=== PATIENT | female | born 1955 | race American Indian/Alaskan Native ===

== ENCOUNTER 2017-01-03 08:47 | Outpatient (CLI) | payer BC ==
--- NOTE | 2017-01-03 09:39 | Mammography Report ---
IMPLANT MAMMOGRAM: Bilateral breast imaging was done with standard and displacement technique. Parenchyma is symmetrically seen ventral to each implant. The implant contours are smooth. No suspicious findings or secondary signs of malignancy are seen. There are no significant changes compared to her prior exams dating back to 2014. CAD was utilized. CONCLUSION: Negative implant mammogram. RECOMMENDATION: Routine follow-up. BI-RADS CATEGORY: 1 = Negative ACR BI-RADS MAMMOGRAPHIC CODES: 0 = Needs additional imaging evaluation; 1 = Negative; 2 = Benign; 3 = Probably benign; 4 = Suspicious; 5 = Malignant; 6 = Known biopsy-proven malignancy COMMENT: 1. Dense breast tissue, i.e., adenosis, fibrocystic changes, etc., may obscure an underlying neoplasm. 2. Approximately 10% of cancers are not detected with mammography. 3. A negative mammography report should not delay biopsy if a clinically suspicious mass is present. COMMENT: Patient follow-up letters are generated in [employer].
== END 2017-01-03 08:48 | disposition home or self-care (01) ==
LOC: SPVWC 08:47
PROVIDERS: ATTEND Obstetrics & Gynecology
DX: Z12.31 Encounter for screening mammogram for malignant neoplasm of breast (principal)
CPT/HCPCS: 77067; G0202

== ENCOUNTER 2018-01-27 12:01 | Outpatient (CLI) | payer BC ==
--- NOTE | 2018-01-27 15:49 | Mammography Report ---
BILATERAL DIGITAL SCREENING MAMMOGRAM with CAD : 01/27/18 12:01:00 CLINICAL: Routine screening. COMPARISON:01/03/17 FINDINGS: The breasts are heterogeneously dense, which may obscure small masses. No new mass, architectural distortion or suspicious calcifications. IMPRESSION: No mammographic evidence of malignancy. BI-RADS CATEGORY: 2 -- Benign RECOMMENDATION: Routine mammographic screening in one year. COMMENT: Patient follow-up letters are generated by our [employer] application.
== END 2018-01-27 12:02 | disposition home or self-care (01) ==
LOC: SPVWC 12:01
PROVIDERS: ATTEND Obstetrics & Gynecology
DX: Z12.31 Encounter for screening mammogram for malignant neoplasm of breast (principal)
CPT/HCPCS: 77067

== ENCOUNTER 2018-03-19 05:51 | Day surgery (SDC) | payer BC ==
[2018-03-19] MEDS ORDERED: TETRACAINE 0.5% OD PRN (06:00)
[2018-03-19] MEDS: VIGAMOX OD SCH ×2 (06:35→06:41)
[2018-03-19] MEDS: MYDRIACYL OD SCH ×2 (06:35→06:41)
[2018-03-19] MEDS: AK-Dilate OD SCH ×2 (06:35→06:41)
[2018-03-19] MEDS ORDERED: NACL P/F VIAL (10 ML) 10 ML ONE (07:46)
[2018-03-19] MEDS ORDERED: VERSED ONE (07:46)
--- NOTE | 2018-03-19 07:49 | Anesthesia Day of Surgery ---
Anesthesia Day of Surgery - Day of Surgery Patient Examined: Yes Patient H&P Reviewed: Yes Patient is NPO: Yes
--- NOTE | 2018-03-19 07:49 | Anesthesia Consultation ---
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
[2018-03-19] MEDS ORDERED: SUBLIMAZE ONE (07:57)
[2018-03-19] MEDS ORDERED: PRED FORTE 1% ONE (08:07)
[2018-03-19] MEDS ORDERED: DIAMOX PO NR (08:30)
[2018-03-19] MEDS ORDERED: PRED FORTE 1% OD SCH (09:00)
[2018-03-19 09:50] VITALS: BP 115/74
--- NOTE | 2018-03-19 09:55 | Operative Report ---
Operative Report Operative Report: PATIENT'S NAME: DATE OF : DATE OF SURGERY: 03/19/2018 PREOPERATIVE DIAGNOSIS: Cataract right eye POSTOPERATIVE DIAGNOSIS: Same OPERATIVE PROCEDURE: Phacoemulsification with intraocular lens implantation, right eye SURGEON: Shyanne Luu M.D. ACADEMIC AFFAIRS COORDINATOR SURGEON: Harlan Lens: [id number] 12.0 D ANESTHESIA: Monitored anesthesia care in combination with topical and intracameral anesthesia because of the established specific risk of reflux, arrhythmias, or anxiety attacks associated with ocular manipulation, as well as the difficulty of the job developer to manage such potentially catastrophic events while simultaneously attempting to complete the surgical procedure and was deemed necessary for the patient's safety to have an Snow Groomer present during the procedure whenever possible. An Snow Groomer was utilized to regulate the intravenous sedation of the patient so the patient was cooperative yet not asleep in order for the patient to successfully maintain fixation of the eye on the operating light of the microscope. COMPLICATIONS: No surgical complications No blood loss. ALLERGIES: No known drug allergies PROGNOSIS: Excellent INDICATIONS FOR SURGERY: The patient is undergoing surgery in the hopes of eliminating or improving these visual difficulties. PROCEDURE: After arriving at the surgery center, the patient was given topical anesthetic and dilating drops, as noted in the record. The patient was then taken into the operating room and given more anesthetic drops. The eyelids , lashes, and lid margins were scrubbed with Betadine solution, and the patient was draped. The Nurse Snow Groomer administered IV sedation and monitored the patient during the procedure. The eye was then fixated with a 0.12, and a stab incision was made in the peripheral clear cornea into the anterior chamber. This was made on my left side. Viscoelastic was next used to fill the anterior chamber. The eye was once again fixated with the 0.12 forceps and a keratome was used make an incision in clear cornea peripherally on my right hand side temporally. The capsule forceps were used to open the central anterior capsule and then make a continuous round capsulotomy. Hydrodissection was carried out utilizing a cannula and balanced salt solution to delineate the cortical material from the capsule and the nucleus from the cortical material. The phaco tip was introduced into the eye and used to remove the anterior cortical material in the area of the capsulotomy. Then the phaco tip was buried into the nucleus, and a chopping instrument was introduced into the eye and used to provide countertraction in the nucleus between this instrument and the phaco tip fracturing the nucleus. This procedure was repeated multiple times, providing multiple small segments of the lens, and then the phaco tip was used to remove each of these segments. An I/A tip was then used to remove the remaining cortex. The anterior chamber was refilled with viscoelastic. An one-piece, acrylic intraocular lens was then placed into an inserting cartridge. The tip of the inserting cartridge was introduced into the keratome incision and into the anterior chamber. The implant was gently advanced through the cartridge and into the eye, where it unfolded, and both haptics were placed in the capsular bag, where it centered nicely and appeared to be well fixated. After placement of the intraocular lens, the I~and~A handpiece was placed back into the eye and used to remove the viscoelastic, including viscoelastic that was behind the optic of the intraocular lens. The anterior chamber was then filled with balanced salt solution, and hydration of the wound was used to cause swelling of the wound and more appropriate watertight closure. When the wound was found to be firm, the patient was asked to comment on how bright the light was. If there was no light perception at all or if the light was substantially dimmer than during the rest of the surgery, the amount of fluid in the eye was decompressed to lower the intraocular pressure until the patient could see the bright light again. This was done to avoid any damage or decreased blood flow to the optic nerve. MEDICATIONS APPLIED AT END OF SURGERY: One drop of Pred Forte and Vigamox The patient was given a shield to wear at night and was instructed not to rub or push on the eye. DISCHARGE SUMMARY: The patient was released in stable condition. The patient and those with the patient were given a written sheet of postoperative instructions and counseling on any abnormal laboratory studies. The patient is to see us tomorrow for follow-up in the office and is to call immediately for any difficulties. Shyanne Luu M.D. Date
--- NOTE | 2018-03-19 09:56 | Short Stay Summary ---
Short Stay Documentation Date of service: 03/19/18 - History H&P: obtained from office - Allergies and Medications Current Medications: Allergies No Known Allergies Allergy (Verified 03/17/18 12:02) Home Medications Medication Instructions Recorded Confirmed Last Taken Type Lisinopril [Zestril TAB] 40 mg PO DAILY 03/17/18 03/19/18 03/19/18 04:00 History Meloxicam 15 mg PO DAILY 03/17/18 03/19/18 03/18/18 09:00 History Pravastatin [Pravachol] 40 mg PO DAILY 03/17/18 03/19/18 03/18/18 17:30 History hydroCHLOROthiazide 50 mg PO DAILY 03/17/18 03/19/18 03/18/18 17:30 History [Hydrochlorothiazide] Active Medications Acetazolamide (Diamox) 500 mg PO ONCE NR Stop: 03/19/18 11:00 Last Admin: 03/19/18 08:37 Dose: 500 mg Moxifloxacin HCl (Vigamox) 1 drops OD Q5MIN MIHIR Stop: 03/21/18 06:01 Last Admin: 03/19/18 06:41 Dose: 1 drops Phenylephrine HCl (Ak-Dilate) 1 drops OD Q5MIN MIHIR Stop: 03/21/18 06:01 Last Admin: 03/19/18 06:41 Dose: 1 drops Prednisolone Acetate (Pred Forte 1%) 1 drops OD QID [facility] Last Admin: 03/19/18 08:36 Dose: 1 drops Tetracaine HCl (Tetracaine 0.5%) 1 drops OD Q5M PRN PRN Reason: PREOP Last Admin: 03/19/18 06:34 Dose: 1 drops Tropicamide (Mydriacyl) 1 drops OD Q5MIN MIHIR Stop: 03/21/18 06:01 Last Admin: 03/19/18 06:41 Dose: 1 drops - Brief post op/procedure progress note Date of procedure: 03/19/18 Pre-op diagnosis: nuclear sclerotic cataract and eye Post-op diagnosis: same Anesthesia: MAC, local Forensic Pathologist: SEBASTIAN ABBASI Estimated blood loss: none Pathology: none Condition: stable - Disposition Condition at discharge: Good Disposition: DC-01 TO HOME OR SELFCARE - Discharge Diagnoses (1) Cataract, nuclear sclerotic, right eye Status: Resolved Short Stay Discharge Plan Additional Instructions: FOLLOW SURGEON INSTRUCTION Follow up with: SHAINA GONZALEZ MD [Primary Care Provider] - 7 Days Forms: Outpatient Surgery DC Inst.
== END 2018-03-19 09:10 | disposition home or self-care (01) ==
LOC: OR 05:51
DX: H25.11 Age-related nuclear cataract, right eye (principal); E78.00 Pure hypercholesterolemia, unspecified; I10 Essential (primary) hypertension; M19.90 Unspecified osteoarthritis, unspecified site; Z98.51 Tubal ligation status; Z90.710 Acquired absence of both cervix and uterus; Z98.890 Other specified postprocedural states; Z80.59 Family history of malignant neoplasm of other urinary tract organ; Z98.41 Cataract extraction status, right eye; Z79.899 Other long term (current) drug therapy
CPT/HCPCS: 66984; J2250; J3010; V2632

== ENCOUNTER 2018-04-16 06:47 | Day surgery (SDC) | payer BC ==
[2018-04-16] MEDS ORDERED: VIGAMOX ONE (07:25)
[2018-04-16] MEDS ORDERED: MYDRIACYL ONE (07:25)
[2018-04-16] MEDS ORDERED: TETRACAINE 0.5% ONE (07:25)
[2018-04-16] MEDS ORDERED: AK-Dilate ONE (07:25)
[2018-04-16] MEDS ORDERED: TETRACAINE 0.5% OS PRN (07:28)
[2018-04-16] MEDS: VIGAMOX OS SCH ×3 (07:50→08:00)
[2018-04-16] MEDS: MYDRIACYL OS SCH ×3 (07:50→08:00)
[2018-04-16] MEDS: AK-Dilate OS SCH ×3 (07:50→08:00)
[2018-04-16] MEDS ORDERED: DIAMOX PO NR (08:16)
--- NOTE | 2018-04-16 08:21 | Anesthesia Day of Surgery ---
Anesthesia Day of Surgery - Day of Surgery Patient Examined: Yes Patient H&P Reviewed: Yes Patient is NPO: Yes
--- NOTE | 2018-04-16 08:21 | Anesthesia Consultation ---
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 Same procedure 1 month ago on right eye under MAC without issues.
[2018-04-16] MEDS ORDERED: VERSED ONE (09:36)
[2018-04-16] MEDS ORDERED: SUBLIMAZE ONE (09:52)
--- NOTE | 2018-04-16 09:58 | Short Stay Summary ---
Short Stay Documentation Date of service: 04/16/18 - History H&P: obtained from office - Allergies and Medications Current Medications: Allergies No Known Allergies Allergy (Verified 04/14/18 12:47) Home Medications Medication Instructions Recorded Confirmed Last Taken Type Lisinopril [Zestril TAB] 40 mg PO DAILY 03/17/18 04/14/18 03/19/18 04:00 History Meloxicam 15 mg PO DAILY 03/17/18 04/14/18 03/18/18 09:00 History Pravastatin [Pravachol] 40 mg PO DAILY 03/17/18 04/14/18 03/18/18 17:30 History hydroCHLOROthiazide 50 mg PO DAILY 03/17/18 04/14/18 03/18/18 17:30 History [Hydrochlorothiazide] Active Medications Acetazolamide (Diamox) 500 mg PO ONCE NR Stop: 04/16/18 22:00 Moxifloxacin HCl (Vigamox) 1 drops OS Q5MIN MIHIR Stop: 04/18/18 08:01 Last Admin: 04/16/18 08:00 Dose: 1 drops Phenylephrine HCl (Ak-Dilate) 1 drops OS Q5MIN MIHIR Stop: 04/18/18 07:31 Last Admin: 04/16/18 08:00 Dose: 1 drops Prednisolone Acetate (Pred Forte 1%) 1 drops OS QID MIHIR Stop: 04/16/18 22:00 Tetracaine HCl (Tetracaine 0.5%) 1 drops OS Q5M PRN PRN Reason: preop Last Admin: 04/16/18 07:50 Dose: 1 drops Tropicamide (Mydriacyl) 1 drops OS Q5MIN MIHIR Stop: 04/18/18 07:30 Last Admin: 04/16/18 08:00 Dose: 1 drops - Brief post op/procedure progress note Date of procedure: 04/16/18 Pre-op diagnosis: left cataract Post-op diagnosis: same Procedure: Phacoemulsification with intraocular lens insertion left eye Anesthesia: MAC, local Surgeon: SEBASTIAN ABBASI Estimated blood loss: none Pathology: none Condition: stable - Disposition Condition at discharge: Good Disposition: DC-01 TO HOME OR SELFCARE - Discharge Diagnoses (1) Nuclear sclerotic cataract of left eye Status: Resolved Short Stay Discharge Plan Follow up with: SHAINA GONZALEZ MD [Primary Care Provider] - 7 Days
--- NOTE | 2018-04-16 09:58 | Operative Report ---
Operative Report Operative Report: PATIENT'S NAME: DATE OF : DATE OF SURGERY: 04/17/2018 PREOPERATIVE DIAGNOSIS: Cataract left eye POSTOPERATIVE DIAGNOSIS: Same OPERATIVE PROCEDURE: Phacoemulsification with intraocular lens implantation, left eye SURGEON: Shyanne Luu M.D. DIRECTOR OF RESEARCH SURGEON: Harlan Lens: [id number] 13.0 D ANESTHESIA: Monitored anesthesia care in combination with topical and intracameral anesthesia because of the established specific risk of reflux, arrhythmias, or anxiety attacks associated with ocular manipulation, as well as the difficulty of the livestock nutritionist to manage such potentially catastrophic events while simultaneously attempting to complete the surgical procedure and was deemed necessary for the patient's safety to have an Intelligence Senior Sergeant present during the procedure whenever possible. An Intelligence Senior Sergeant was utilized to regulate the intravenous sedation of the patient so the patient was cooperative yet not asleep in order for the patient to successfully maintain fixation of the eye on the operating light of the microscope. COMPLICATIONS: No surgical complications No blood loss. ALLERGIES: No known drug allergies PROGNOSIS: Excellent INDICATIONS FOR SURGERY: The patient is undergoing surgery in the hopes of eliminating or improving these visual difficulties. PROCEDURE: After arriving at the surgery center, the patient was given topical anesthetic and dilating drops, as noted in the record. The patient was then taken into the operating room and given more anesthetic drops. The eyelids , lashes, and lid margins were scrubbed with Betadine solution, and the patient was draped. The Nurse Intelligence Senior Sergeant administered IV sedation and monitored the patient during the procedure. The eye was then fixated with a 0.12, and a stab incision was made in the peripheral clear cornea into the anterior chamber. This was made on my left side. Viscoelastic was next used to fill the anterior chamber. The eye was once again fixated with the 0.12 forceps and a keratome was used make an incision in clear cornea peripherally on my right hand side temporally. The capsule forceps were used to open the central anterior capsule and then make a continuous round capsulotomy. Hydrodissection was carried out utilizing a cannula and balanced salt solution to delineate the cortical material from the capsule and the nucleus from the cortical material. The phaco tip was introduced into the eye and used to remove the anterior cortical material in the area of the capsulotomy. Then the phaco tip was buried into the nucleus, and a chopping instrument was introduced into the eye and used to provide countertraction in the nucleus between this instrument and the phaco tip fracturing the nucleus. This procedure was repeated multiple times, providing multiple small segments of the lens, and then the phaco tip was used to remove each of these segments. An I/A tip was then used to remove the remaining cortex. The anterior chamber was refilled with viscoelastic. An one-piece, acrylic intraocular lens was then placed into an inserting cartridge. The tip of the inserting cartridge was introduced into the keratome incision and into the anterior chamber. The implant was gently advanced through the cartridge and into the eye, where it unfolded, and both haptics were placed in the capsular bag, where it centered nicely and appeared to be well fixated. After placement of the intraocular lens, the I~and~A handpiece was placed back into the eye and used to remove the viscoelastic, including viscoelastic that was behind the optic of the intraocular lens. The anterior chamber was then filled with balanced salt solution, and hydration of the wound was used to cause swelling of the wound and more appropriate watertight closure. When the wound was found to be firm, the patient was asked to comment on how bright the light was. If there was no light perception at all or if the light was substantially dimmer than during the rest of the surgery, the amount of fluid in the eye was decompressed to lower the intraocular pressure until the patient could see the bright light again. This was done to avoid any damage or decreased blood flow to the optic nerve. MEDICATIONS APPLIED AT END OF SURGERY: One drop of Pred Forte and Vigamox The patient was given a shield to wear at night and was instructed not to rub or push on the eye. DISCHARGE SUMMARY: The patient was released in stable condition. The patient and those with the patient were given a written sheet of postoperative instructions and counseling on any abnormal laboratory studies. The patient is to see us tomorrow for follow-up in the office and is to call immediately for any difficulties. Shyanne Luu M.D. Date
[2018-04-16] MEDS ORDERED: PRED FORTE 1% OS SCH (10:00)
--- NOTE | 2018-04-16 10:22 | Post Anesthesia Evaluation ---
- Post Anesthesia Evaluation Patient Participated: Yes Airway Patent: Yes Stable Respiratory Function: Yes Nausea/Vomiting: No Temp > 96.8F: Yes Pain Manageable: Yes Adequeate Hydration: Yes Anesthesia Complications: No
[2018-04-16 15:11] VITALS: BP 129/65
== END 2018-04-16 10:37 | disposition home or self-care (01) ==
LOC: OR 06:47
DX: H25.12 Age-related nuclear cataract, left eye (principal); H25.11 Age-related nuclear cataract, right eye; E78.00 Pure hypercholesterolemia, unspecified; I10 Essential (primary) hypertension; M19.90 Unspecified osteoarthritis, unspecified site; Z98.51 Tubal ligation status; Z90.710 Acquired absence of both cervix and uterus; Z98.890 Other specified postprocedural states; Z79.899 Other long term (current) drug therapy; Z98.41 Cataract extraction status, right eye; Z80.59 Family history of malignant neoplasm of other urinary tract organ
CPT/HCPCS: 66984; J2250; J3010; V2632

== ENCOUNTER 2019-01-28 10:09 | Outpatient (CLI) | payer BC ==
--- NOTE | 2019-01-28 15:12 | Mammography Report ---
BILATERAL DIGITAL SCREENING MAMMOGRAM WITH CAD INDICATION: Routine screening mammography. TECHNIQUE: Digital bilateral 2D mammography was obtained in the craniocaudal and mediolateral obliq ue projections. This examination was interpreted with the benefit of Computer-Aided Detection analysi s. COMPARISON: 01/03/2016 FINDINGS: Breast Density: The breasts are heterogeneously dense, which may obscure small masses. No mass, architectural distortion or suspicious calcifications. IMPRESSION:No mammographic evidence of malignancy. BI-RADS Category 2: Benign. No mammographic evidence of malignancy. Recommend routine screening ma mmography in one year. A "normal" or negative report should not discourage follow up or biopsy of a clinically significant f inding. A written summary of these findings will be mailed to the patient. The patient will be entered into a mammography reporting system which will generate a reminder letter for the patient's next appointmen t at the appropriate interval. The [employer] recommends yearly mammograms starting at age 40 and continuing as l pepe as a woman is in good health. Breast MRI is recommended for women with an approximate 20-25% or greater lifetime risk of breast cancer, including women with a strong family history of breast or ova ethan cancer or who have been treated for Hodgkin's disease. Signer Name: Emmett Ceballos MD Signed: 01/28/2019 3:08 PM Workstation Name: [id number]
== END 2019-01-28 10:10 | disposition home or self-care (01) ==
LOC: SPVWC 10:09
PROVIDERS: ATTEND Obstetrics & Gynecology
DX: Z12.31 Encounter for screening mammogram for malignant neoplasm of breast (principal); E78.00 Pure hypercholesterolemia, unspecified; I10 Essential (primary) hypertension; Z90.710 Acquired absence of both cervix and uterus
CPT/HCPCS: 77067

== ENCOUNTER 2020-10-23 09:06 | Outpatient (CLI) | payer BC ==
--- NOTE | 2020-10-23 09:52 | Mammography Report ---
DIGITAL SCREENING MAMMOGRAM WITH CAD, 10/23/2020 CLINICAL INFORMATION / INDICATION: Routine screening mammography. SCREENING MAMMO TECHNIQUE: Digital bilateral 2D mammography was obtained in the craniocaudal and mediolateral obliqu e projections. This examination was interpreted with the benefit of Computer-Aided Detection analysis . COMPARISON: 01/03/2017, 01/27/2018, 01/28/2019 FINDINGS: Breast Density: There are scattered areas of fibroglandular density. No dominant mass, suspicious calcifications, or architectural distortion in either breast. There are stable nodules on the right. IMPRESSION: No mammographic evidence of malignancy. Follow up recommendation: Routine yearly BI-RADS Category 2: Benign. A "normal" or negative report should not discourage follow up or biopsy of a clinically significant f inding. A written summary of these findings will be mailed to the patient. The patient will be entered into a mammography reporting system which will generate a reminder letter for the patient's next appointmen t at the appropriate interval. The [employer] recommends yearly mammograms starting at age 40 and continuing as l pepe as a woman is in good health. Breast MRI is recommended for women with an approximate 20-25% or greater lifetime risk of breast cancer, including women with a strong family history of breast or ova ethan cancer or who have been treated for Hodgkin's disease. Signer Name: Denton Ruiz MD Signed: 10/23/2020 9:47 AM Workstation Name: [id number]
== END 2020-10-23 09:07 | disposition home or self-care (01) ==
LOC: SPVWC 09:06
PROVIDERS: ATTEND Obstetrics & Gynecology
DX: Z12.31 Encounter for screening mammogram for malignant neoplasm of breast (principal); N64.89 Other specified disorders of breast
CPT/HCPCS: 77067

== ENCOUNTER 2021-08-27 10:48 | Outpatient (CLI) | payer MEDICARE ==
--- NOTE | 2021-08-27 13:40 | Magnetic Resonance Report ---
MRI LUMBAR SPINE 08/27/2021 INDICATION / CLINICAL INFORMATION: M54.16,LOWER BACK PAIN. COMPARISON: None available. FINDINGS: GENERAL OBSERVATIONS: Unenhanced MR images of the lumbar spine were obtained. There is a mild left convex scoliosis centered at the L3 level. There is no evidence of acute abnormality. Multilevel degenerative disc and facet changes are present at multiple levels as detailed below. [id number]-[id number] ANALYSIS: L5-S1: Mild diffuse disc bulging and facet degenerative changes. L4-5: Mild diffuse disc bulging and prominent facet degenerative changes. A prominent right sided syn ovial cyst is present along the medial aspect of the right facet joint, resulting in narrowing of the right side of the canal and impingement on the right lateral recess. L3-4: Mild diffuse disc bulging and moderate symmetric facet degenerative changes. L2-3: Unremarkable. L1-2: Unremarkable. BONE MARROW: No significant abnormality. SPINAL CORD/CAUDA EQUINA: Normal. PARASPINAL SOFT TISSUES: No significant abnormality. IMPRESSION: Multilevel degenerative changes. Prominent right-sided synovial cyst at L4-5. Signer Name: Ger Talamantes MD Signed: 08/27/2021 1:35 PM Workstation Name: [id number]
== END 2021-08-27 10:49 | disposition home or self-care (01) ==
LOC: MRI 10:48
PROVIDERS: ATTEND Pain Medicine Interventional Pain Medicine
DX: M51.17 Intervertebral disc disorders with radiculopathy, lumbosacral region (principal); M41.86 Other forms of scoliosis, lumbar region; M47.817 Spondylosis without myelopathy or radiculopathy, lumbosacral region; M71.38 Other bursal cyst, other site
CPT/HCPCS: 72148